=== PATIENT | male | born 1970 | race Caucasian/White ===

== ENCOUNTER → 2016-09-10 12:32 | Outpatient (CLI) | payer OTHER | END | disposition home or self-care (01) | LOC: D.RT 12:32 | DX: I26.99 Other pulmonary embolism without acute cor pulmonale (principal) ==

== ENCOUNTER → 2018-01-13 13:04 | Outpatient (CLI) | payer OTHER | END | disposition home or self-care (01) | LOC: D.RT 13:00 | DX: R07.89 Other chest pain (principal) ==